=== PATIENT | male | born 1940 | race Caucasian/White ===

== ENCOUNTER 2019-06-14 01:08 | Emergency (ER) | payer SELFPAY | END 2019-06-14 01:26 | disposition home or self-care (01) | LOC: NAV ERS 01:08 | DX: I12.9 Hypertensive chronic kidney disease with stage 1 through stage 4 chronic kidney disease, or unspecified chronic kidney disease (principal); N18.9 Chronic kidney disease, unspecified; R04.0 Epistaxis; E78.5 Hyperlipidemia, unspecified; N40.0 Benign prostatic hyperplasia without lower urinary tract symptoms; M19.90 Unspecified osteoarthritis, unspecified site; Z79.82 Long term (current) use of aspirin; Z79.899 Other long term (current) drug therapy | CPT/HCPCS: 99283 ==